=== PATIENT | male | born 1955 | race African-American/Black ===

== ENCOUNTER 2018-03-16 09:16 | Day surgery (SDC) | payer BC ==
[~2018-03-16 09:16] MED LIST: DIPRIVAN 10 MG/ML IV ONE
[2018-03-16] MEDS ORDERED: NACL 0.9% 1000 ML 1,000 ML IV SCH (10:10)
--- NOTE | 2018-03-16 10:50 | Anesthesia Consultation ---
Anesthesia Consult and Med Hx Date of service: 03/16/18 - Airway Anesthetic Teeth Evaluation: Crowns ROM Head & Neck: Adequate Mental/Hyoid Distance: Adequate Mallampati Class: Class II Intubation Access Assessment: Probably Good - Pulmonary Exam CTA: Yes - Cardiac Exam Cardiac Exam: RRR - Pre-Operative Health Status ASA Pre-Surgery Classification: ASA2 Proposed Anesthetic Plan: MAC - Endocrine Hx Liver Disease: Yes (Hep B )
--- NOTE | 2018-03-16 10:51 | Anesthesia Day of Surgery ---
Anesthesia Day of Surgery - Day of Surgery Patient Examined: Yes Patient H&P Reviewed: Yes Patient is NPO: Yes
[2018-03-16] MEDS ORDERED: WATER FOR IRRIG STERILE IR ONE (10:54)
[2018-03-16] MEDS ORDERED: WATER FOR IRRIG STERILE ONE (10:55)
[2018-03-16] MEDS ORDERED: DIPRIVAN 10 MG/ML IV ONE (11:00)
--- NOTE | 2018-03-16 11:07 | History and Physical Report ---
History of Present Illness Date of examination: 03/16/18 Date of admission: 03/16/2018 Chief complaint: Colon cancer screen History of present illness: See the office note dated 01/2018 reviewed and scanned in the eChart. No significant change. Past History Past Medical History: liver disease (hepatitis B) Past Surgical History: No surgical history Social history: no significant social history. denies: smoking, alcohol abuse Family history: no significant family history Medications and Allergies Allergies Allergy/AdvReac Type Severity Reaction Status Date / Time iodine Allergy Rash Verified 03/16/18 10:24 CT CONTRAST Allergy Rash Uncoded 03/16/18 10:24 Home Medications Medication Instructions Recorded Confirmed Last Taken Type Vemlidy 25 mg PO DAILY 03/15/18 03/15/18 03/14/18 History Active Meds: Active Medications Sodium Chloride (Nacl 0.9% 1000 Ml) 1,000 mls @ 50 mls/hr IV DIRECT DELMER Last Admin: 03/16/18 10:15 Dose: 50 mls/hr I HAVE REVIEWED AND RECONCILED Review of Systems All systems: negative (as noted in the HPI) Exam - Constitutional Vitals: Temp Pulse Resp BP Pulse Ox 98.1 F 61 12 114/51 97 03/16/18 10:00 03/16/18 10:00 03/16/18 10:00 03/16/18 10:00 03/16/18 10:00 General appearance: Present: no acute distress - EENT Eyes: Present: PERRL, EOM intact ENT: hearing intact, clear oral mucosa - Neck Neck: Present: supple, normal ROM - Respiratory Respiratory effort: normal Respiratory: bilateral: CTA - Cardiovascular Rhythm: regular Heart Sounds: Present: S1 & S2 - Abdominal General gastrointestinal: Present: soft, non-tender, non-distended Assessment and Plan - Patient Problems (1) Colon cancer screening Current Visit: Yes Status: Acute Plan to address problem: - Colonoscopy scheduled for today.
--- NOTE | 2018-03-16 11:23 | Post Operative Note ---
Pre-op diagnosis: Colon cancer screen Post-op diagnosis: other (Normal colon) Findings: 1. Normal colonoscopy Procedure: Colonoscopy Anesthesia: MAC Surgeon: IRVIN SIMPSON Estimated blood loss: none Pathology: none Specimen disposition: other (N/A) Condition: stable Disposition: same day (Recs: 1. Repeat colonoscopy 10 years.)
--- NOTE | 2018-03-16 11:28 | Short Stay Summary ---
Short Stay Documentation Date of service: 03/16/18 Narrative H&P: The patient had an uncomplicated (normal) colonoscopy for colon cancer screening. - History Principal diagnosis: Colon cancer screen H&P: obtained from office Past Medical History: liver disease (hepatitis B) Past Surgical History: No surgical history Social history: no significant social history, no smoking, no alcohol abuse - Allergies and Medications Current Medications: Allergies iodine Allergy (Verified 03/16/18 10:24) Rash CT CONTRAST Allergy (Uncoded 03/16/18 10:24) Rash Home Medications Medication Instructions Recorded Confirmed Last Taken Type Vemlidy 25 mg PO DAILY 03/15/18 03/15/18 03/14/18 History Active Medications Sodium Chloride (Nacl 0.9% 1000 Ml) 1,000 mls @ 50 mls/hr IV DIRECT DELMER Last Admin: 03/16/18 10:15 Dose: 50 mls/hr - Physical exam General appearance: no acute distress, well-nourished Integumentary: no rash Lungs: Clear to auscultation, Normal air movement Heart: Regular rate, Normal S1, Normal S2 Gastrointestinal: normal, normoactive bowel sounds - Brief post op/procedure progress note Date of procedure: 03/16/18 Pre-op diagnosis: Colon cancer screen Post-op diagnosis: other (normal) Procedure: Colonoscopy Anesthesia: MAC Findings: 1. Normal colonoscopy Surgeon: IRVIN SIMPSON Estimated blood loss: none Pathology: none Specimen disposition: other (N/A) Condition: stable - Hospital course Hospital course: Uncomplicated colonoscopy - Disposition Condition at discharge: Good Disposition: DC-01 TO HOME OR SELFCARE - Discharge Diagnoses (1) Colon cancer screening Status: Acute Comment: Resume regular diet and activites. Resume all medications. Short Stay Discharge Plan Follow up with: MARCIA SHAW MD [Other] - 7 Days
--- NOTE | 2018-03-16 11:36 | Operative Report ---
PROCEDURE PERFORMED: Colonoscopy. PREOPERATIVE DIAGNOSIS: Colon cancer screening. POSTOPERATIVE DIAGNOSIS: Normal colonoscopy. ENDOSCOPIST: Andrews Perez MD INSTRUMENT: [employer] video endoscope. MEDICATIONS: MAC anesthesia by [facility]. COMPLICATIONS: No apparent complications. ESTIMATED BLOOD LOSS: None. SPECIMENS: None. IMPLANTS: None. ASSISTANTS: None. CONDITION AT COMPLETION: Stable. TECHNIQUE: The patient was informed of the risks and benefits of the procedure. He signed informed consent to proceed. He was placed in left lateral decubitus position. The above sedative medications were given. His vital signs remained stable throughout the procedure. The instrument was advanced from the anus to the cecum under direct visualization. The cecum was identified by the appendiceal orifice and the ileocecal valve. At that point, the bowel was insufflated and the endoscope was slowly withdrawn. FINDINGS: Normal colonoscopy. RECOMMENDATIONS: Repeat colonoscopy in 10 years for routine screening. JOB# [id number] NATALIA/NTS
[2018-03-16 11:49] VITALS: BP 104/65
== END 2018-03-16 09:17 | disposition home or self-care (01) ==
LOC: GIO 09:16
PROVIDERS: ATTEND Internal Medicine Gastroenterology
DX: Z12.11 Encounter for screening for malignant neoplasm of colon (principal); Z86.010 Personal history of colon polyps; Z86.19 Personal history of other infectious and parasitic diseases; Z91.041 Radiographic dye allergy status; Z79.899 Other long term (current) drug therapy; Z80.8 Family history of malignant neoplasm of other organs or systems
CPT/HCPCS: 45378; J2704; J7030

== ENCOUNTER 2019-08-30 10:09 | Outpatient (CLI) | payer BC ==
[2019-08-30 10:57] LABS: Basophils # (Auto) 0.1 K/mm3 (0.0-0.1); Basophils % (Auto) 1.8 % (0.0-1.8); Eosinophils # (Auto) 0.1 K/mm3 (0.0-0.4); Hematocrit 48.1 % (35.5-45.6); Hemoglobin 16.1 gm/dl (11.8-15.2); Lymphocytes # (Auto) 1.4 K/mm3 (1.2-5.4); Lymphocytes % (Auto) 39.1 % (13.4-35.0); Mean Corpuscular HGB Conc 34 % (32-34); Mean Corpuscular Volume 87 fl (84-94); Monocytes # (Auto) 0.2 K/mm3 (0.0-0.8); Monocytes % (Auto) 6.6 % (0.0-7.3); Platelet Count 186 K/mm3 (140-440); Red Blood Count 5.53 M/mm3 (3.65-5.03); Red Cell Distribution Width 14.3 % (13.2-15.2)
[2019-08-30 11:09] LABS: Alanine Aminotransferase 30 units/L (7-56); Albumin 4.7 g/dL (3.9-5); BUN/Creatinine Ratio 10; Blood Urea Nitrogen 9 mg/dL (9-20); Calcium 9.5 mg/dL (8.4-10.2); Hemolysis Index 3; LDL Cholesterol,Direct 163 mg/dL (50-130)
[2019-08-30 11:14] LABS: Bilirubin,Urine NEG (Negative); Blood,Urine NEG (Negative); Color,Urine Straw (Yellow); Protein,Urine <15 mg/dL mg/dL (Negative); Urobilinogen,Urine < 2.0 mg/dL (<2.0); WBC,Urine < 1.0 /HPF (0.0-6.0)
[2019-08-30 12:22] LABS: Chol/HDL Ratio 2.68 %; HDL Cholesterol 102 mg/dL (40-59)
== END 2019-08-30 10:10 | disposition home or self-care (01) ==
LOC: LAB 10:09
PROVIDERS: ATTEND Internal Medicine
DX: B19.10 Unspecified viral hepatitis B without hepatic coma (principal)
CPT/HCPCS: 36415; 80053; 80061; 81001; 82106; 84153; 84443; 85025